=== PATIENT | male | born 1965 | race Caucasian/White ===

== ENCOUNTER 2019-12-18 07:26 | Emergency (ER) | payer OTHER ==
[2019-12-18] MEDS ORDERED: HYDROmorphone 1 MG/ML Syringe IVPUSH STA (07:56)
[2019-12-18] MEDS ORDERED: Sodium Chloride 0.9% 1,000 ML IV ONE (07:56)
[2019-12-18] MEDS ORDERED: Ondansetron 4 MG/2 ML SDV IVPUSH ONE (07:56)
--- NOTE | 2019-12-18 08:05 | EDM.PDOC ---
ED HPI GENERAL MEDICAL PROBLEM - General Chief Complaint: Abdominal Pain Stated Complaint: ABDOMINAL PAIN Time Seen by Provider: 12/18/19 07:37 Source of Information: Reports: Patient History Limitations: Reports: No Limitations - History of Present Illness INITIAL COMMENTS - FREE TEXT/NARRATIVE: Mr. Graham is a very pleasant 53-year-old man with a past medical history significant for hypertension, who now presents to the ED stating that he developed pain felt across his entire upper abdomen around 22:00 last night, just after he had laid down to go to sleep. He is unable to describe the character of the pain, but states that it radiated through to his mid back last night, but not today. He developed nausea and vomiting around 02:00. No associated fever, constipation, diarrhea, or urinary symptoms. The patient states that he had similar symptoms about 4 months ago, and was seen at an ED in [place]. He believes they performed a CT scan, and he was told that he had gallstones. They recommended that he have a cholecystectomy, however, the patient has not followed up in that regard. Other than the abdominal pain, nausea, and vomiting, the patient denies recent fever, chills, sore throat, ear pain, nasal or sinus congestion, cough, dyspnea , chest pain, palpitations, recent weight gain or weight loss, recent bloody bowel movements or black bowel movements, recent joint aches, headaches, or rashes. The patient states that he last ate around 21:00 last night. The patient states that he has forgotten to take his antihypertensive medication for the past few days. Here in the ED, the patient's initial BP is found to be elevated at 159/98, otherwise, the patient is hemodynamically stable, afebrile, saturating 96% on room air. The patient's PCP is in [place], [place]. He is visiting relatives in this area. Upper Abdomen Pain Score (Numeric/FACES): 7 - Related Data Allergies Allergy/AdvReac Type Severity Reaction Status Date / Time No Known Allergies Allergy Verified 12/18/19 07:33 Home Meds: Home Meds Acetaminophen/HYDROcodone [Leipsic 325-5 MG] 1 - 2 tab PO Q6H PRN #14 tablet 12/17 [Rx] Ondansetron [Zofran ODT] 1 tab PO Q8H PRN #10 tab.dis 12/18/19 [Rx] hydroCHLOROthiazide [Hydrochlorothiazide] 25 mg PO DAILY 12/18/19 [History] Past Medical History Cardiovascular History: Reports: Hypertension Gastrointestinal History: Reports: Cholelithiasis - Past Surgical History HEENT Surgical History: Reports: Naso-Sinus Surgery (deviated septum), Oral Surgery (wisdom teeth extraction) Social & Family History - Tobacco Use Smoking Status *Q: Never Smoker Second Hand Smoke Exposure: No - Caffeine Use Caffeine Use: Reports: Coffee - Alcohol Use Alcohol Use History: No - Recreational Drug Use Recreational Drug Use: No - Living Situation & Occupation Living situation: Reports: , with Spouse, with Family (4 kids) Occupation: Employed (Aircraft maintenance) ED ROS GENERAL - Review of Systems Review Of Systems: Comprehensive ROS is negative, except as noted in HPI. ED EXAM, GI/ABD - Physical Exam Exam: See Below Exam Limited By: No Limitations General Appearance: Alert, WD/WN, No Apparent Distress Eyes: Bilateral: Normal Appearance, EOMI Ears: Normal External Exam, Hearing Grossly Normal Nose: Normal Inspection Throat/Mouth: Normal Inspection, Normal Lips, Normal Voice, No Airway Compromise Head: Atraumatic, Normocephalic Neck: Normal Inspection, Full Range of Motion Respiratory/Chest: No Respiratory Distress, Lungs Clear, Normal Breath Sounds, No Accessory Muscle Use Cardiovascular: Normal Peripheral Pulses, Regular Rate, Rhythm, No Edema, No Gallop, No JVD, No Murmur, No Rub GI/Abdominal Exam: Normal Bowel Sounds, Soft, No Organomegaly, No Distention, No Abnormal Bruit, No Mass, Tender (Mild, across the upper abdomen, but not localized to the left upper quadrant or epigastrium. Minimal, if any, tenderness to the lower abdomen) (Male) Exam: Deferred Rectal (Males) Exam: Deferred Back Exam: Normal Inspection, Full Range of Motion. No: CVA Tenderness (L), CVA Tenderness (R) Extremities: Normal Inspection, Normal Range of Motion, No Pedal Edema, Normal Capillary Refill Neurological: Alert, Oriented, Normal Cognition, No Motor/Sensory Deficits Psychiatric: Normal Affect Skin Exam: Warm, Dry, Intact, Normal Color, No Rash Course - Vital Signs Last Recorded V/S: Last Vital Signs Temp 36.4 C 12/18/19 07:35 Pulse 66 12/18/19 07:35 Resp 16 12/18/19 07:35 BP 159/98 H 12/18/19 07:35 Pulse Ox 96 12/18/19 07:35 - Orders/Labs/Meds Labs: Laboratory Tests 12/18/19 12/18/19 Range/Units 08:00 08:00 WBC 13.04 H (4.23-9.07) K/mm3 RBC 5.14 (4.63-6.08) M/mm3 Hgb 15.0 (13.7-17.5) gm/dl Hct 44.5 (40.1-51.0) % MCV 86.6 (79.0-92.2) fl MCH 29.2 (25.7-32.2) pg MCHC 33.7 (32.2-35.5) g/dl RDW Std Deviation 40.0 (35.1-43.9) fL Plt Count 187 (163-337) K/mm3 MPV 10.7 (9.4-12.3) fl Neutrophils % (Manual) 80 H (40-60) % Band Neutrophils % 0 (0-10) % Lymphocytes % (Manual) 14 L (20-40) % Atypical Lymphs % 0 % Monocytes % (Manual) 6 (2-10) % Eosinophils % (Manual) 0 L (0.8-7.0) % Basophils % (Manual) 0 L (0.2-1.2) Platelet Estimate Adequate RBC Morph Comment Normal Sodium 137 (136-145) mEq/L Potassium 3.8 (3.5-5.1) mEq/L Chloride 103 (98-107) mEq/L Carbon Dioxide 24 (21-32) mEq/L Anion Gap 13.8 (5-15) BUN 20 H (7-18) mg/dL Creatinine 1.0 (0.7-1.3) mg/dL Est Cr Clr Drug Dosing 92.69 mL/min Estimated GFR (MDRD) > 60 (>60) mL/min BUN/Creatinine Ratio 20.0 H (14-18) Glucose 121 H (74-106) mg/dL Calcium 8.8 (8.5-10.1) mg/dL Magnesium 1.8 (1.8-2.4) mg/dl Total Bilirubin 0.6 (0.2-1.0) mg/dL AST 23 (15-37) U/L ALT 27 (16-63) U/L Alkaline Phosphatase 55 (46-116) U/L Total Protein 7.3 (6.4-8.2) g/dl Albumin 3.7 (3.4-5.0) g/dl Globulin 3.6 gm/dL Albumin/Globulin Ratio 1.0 (1-2) Lipase 65 L (73-393) U/L Meds: Medications Discontinued Medications Generic Name Dose Route Start Last Admin Trade Name Yossi PRN Reason Stop Dose Admin Hydromorphone HCl 0.5 mg 12/18/19 07:56 12/18/19 08:07 Dilaudid IVPUSH 12/18/19 07:57 0.5 mg ONETIME STA Administration Sodium Chloride 1,000 mls @ 999 mls/hr 12/18/19 07:56 12/18/19 08:05 Normal Saline IV 12/18/19 08:56 999 mls/hr ONETIME ONE Administration Ondansetron HCl 4 mg 12/18/19 07:56 12/18/19 08:08 Zofran IVPUSH 12/18/19 07:57 4 mg ONETIME ONE Administration - Re-Assessments/Exams Free Text/Narrative Re-Assessment/Exam: 12/18/19 07:57 As above, the patient developed upper abdominal pain last night, followed by nausea and vomiting. On examination at this time, he has mild and vague upper abdominal tenderness, but no focal tenderness. Because of that, I do not feel that the patient requires a CT of his abdomen and pelvis, however, he is a candidate for an ultrasound of his right upper quadrant, since he last ate around 21:00 last night. I have also ordered blood work, and in the meantime, the patient will be given IV fluid, IV Dilaudid, and IV Zofran. 12/18/19 08:54 The patient's CBC is remarkable for a WBC count elevated at 13.04, however, there is 0% bandemia. The remainder of his CBC is unremarkable. His CMP is remarkable for a BUN elevated at 20, but with a Cr normal at 1.0. His blood glucose is elevated at 121, with the remainder of his CMP being unremarkable. His magnesium level is within normal limits at 1.8. His lipase level is within normal limits at 65. 12/18/19 09:17 Ultrasound of the right upper quadrant is read by Dr. Stewart as: 1. No abnormality is appreciated on right upper quadrant abdominal ultrasound exam. 12/18/19 09:32 Test results discussed with the patient. As above, today's work-up is unremarkable, and does not explain the cause of his pain. It is interesting that the ultrasound not find a gallstone, indicating that he either never had a gallstone, or that he has since passed the gallstone. There is a possibility, however, that the patient is ball-valving a gallstone, since the ultrasound does not see the lower third of the common bile duct. I am therefore recommending that if the patient's pain recurs, that he see his PCP about getting an outpatient MRCP. I will discharge the patient home with prescriptions for Leipsic and Zofran, at the patient's request, in case his pain returns. Departure - Departure Time of Disposition: 09:34 Disposition: Home, Self-Care 01 Condition: Good Clinical Impression: Upper abdominal pain of unknown etiology - Discharge Information *PRESCRIPTION DRUG MONITORING PROGRAM REVIEWED*: Not Applicable *COPY OF PRESCRIPTION DRUG MONITORING REPORT IN PATIENT DONA: Not Applicable Prescriptions: Acetaminophen/HYDROcodone [Leipsic 325-5 MG] 1 - 2 tab PO Q6H PRN #14 tablet PRN Reason: Pain (Severe 7-10) Ondansetron [Zofran ODT] 1 tab PO Q8H PRN #10 tab.dis PRN Reason: Nausea/Vomiting Referrals: PCP,None [Primary Care Provider] - Forms: ED Department Discharge Additional Instructions: You were seen in the emergency room after developing upper abdominal pain with nausea and vomiting. Work-up in the ER included blood work and an ultrasound of your upper right abdomen. Your entire work-up was unremarkable, and does not explain the cause of your pain. No gallstone was seen ultrasound, indicating that you either never had a gallstone, or if you did, you have passed it. As discussed, it is possible that you have a gallstone stuck in your common bile duct, causing intermittent pain by "ball-valving". In order to diagnose such a case, we would recommend that you undergo an outpatient MRCP. If your pain returns, we recommend that you take [id number] ibuprofen, 3 tablets (600 mg) every 8 hours, with food, [id number]. You may also take 1 to 2 tablets of the opioid pain reliever Leipsic up to every 6 hours, as needed for pain not relieved by ibuprofen. If you take Leipsic, do not drive or operate heavy machinery for 12 hours afterwards. Leipsic may cause constipation, so consider taking a stool softener. You may dissolve 1 tablet of the anti-nausea medicine Zofran on your tongue up to every 8 hours, as needed for nausea/vomiting. If any other problems, please do not hesitate to return to the ER. Sepsis Event Note - Evaluation Sepsis Screening Result: No Definite Risk - Focused Exam Vital Signs: Vital Signs Temp Pulse Resp BP Pulse Ox 12/18/19 07:35 36.4 C 66 16 159/98 H 96 Date Exam was Performed: 12/18/19 Time Exam was Performed: 09:39
--- NOTE | 2019-12-18 09:08 | US ---
Limited abdominal ultrasound: Multiple real-time images of the upper right abdomen were obtained. Comparison: No previous abdominal imaging is available. Gallbladder contains no shadowing gallstones. No gallbladder wall thickening or biliary duct dilatation is appreciated. Liver contains no focal abnormality. Right kidney shows no hydronephrosis or mass. Right kidney measures 12.2 cm in length. Visualized portions of the pancreas shows no discrete abnormality. Impression: 1. No abnormality is appreciated on right upper quadrant abdominal ultrasound exam. Diagnostic code #1 This report was dictated in MDT
== END 2019-12-18 10:09 | disposition home or self-care (01) ==
LOC: JD.ED 07:26
DX: R10.10 Upper abdominal pain, unspecified (principal); I10 Essential (primary) hypertension; Z79.899 Other long term (current) drug therapy
CPT/HCPCS: 36415; 76705; 80053; 83690; 83735; 85007; 85027; 96361; 96374; 96375; 99284; J1170; J2405; J7030